=== PATIENT | female | born 1995 | race Caucasian/White ===

== ENCOUNTER 2020-10-19 21:37 | Emergency (ER) | payer SELFPAY ==
[~2020-10-19] VITALS: Ht 172.7 cm; Wt 65.8 kg
--- NOTE | 2020-10-19 21:42 | NUR ---
PT BIBSELF C/O POSSIBLE ALLERGIC REACTION TO NALTREXONE. PT AAOX4 BREATHING EVENLY AND UNLABORED. PT APPEARS ANXIOUS AND DIAPHORETIC. PT WAS USING SUBUTEX AND HER DR CHANGED HER PRESCRIPTION TO NALTREXONE. PT DENIES DRINKING ANY ALCOHOL TODAY. PT ATTACHED TO MONITOR AND POX. PT GIVEN BLANKET AND CALL LIGHT WITHIN REACH
[2020-10-19] MEDS ORDERED: LORAZEPAM INJ 2 MG/ML VIAL ONE (22:14)
[2020-10-19] MEDS: LORAZEPAM INJ 2 MG/ML VIAL IM ONE (22:30)
--- NOTE | 2020-10-19 22:49 | NUR ---
called [facility] dedicated truck driver, will arrive to [facility] pt eta 15 min
--- NOTE | 2020-10-19 22:55 | NUR ---
Patient discharged to home in stable condition. Written and verbal after care instructions given. Patient verbalizes understanding of instruction. Pt ambulatory with a steady gait
[2020-10-19 23:04] VITALS: BP 121/74
== END 2020-10-19 23:00 | disposition home or self-care (01) ==
LOC: ER 21:43
DX: F11.23 Opioid dependence with withdrawal (principal); F41.9 Anxiety disorder, unspecified
CPT/HCPCS: 96372; 99283; J2060